=== PATIENT | female | born 1990 | race Caucasian/White ===

== ENCOUNTER → 2023-12-16 09:53 | Outpatient (REF) | payer BC, SELFPAY | LOC: PNTC 09:53 | PROVIDERS: ATTENDING PHYSICIAN Obstetrics & Gynecology | DX: Z87.59 Personal history of other complications of pregnancy, childbirth and the puerperium (principal); O99.841 Bariatric surgery status complicating pregnancy, first trimester | CPT/HCPCS: 76816 ==

== ENCOUNTER → 2024-01-15 09:31 | Outpatient (REF) | payer BC, SELFPAY | LOC: PNTC 09:31 | PROVIDERS: ATTENDING PHYSICIAN Obstetrics & Gynecology | DX: Z87.59 Personal history of other complications of pregnancy, childbirth and the puerperium (principal); O99.840 Bariatric surgery status complicating pregnancy, unspecified trimester | CPT/HCPCS: 76816 ==

== ENCOUNTER → 2024-02-12 09:34 | Outpatient (REF) | payer BC, SELFPAY | LOC: PNTC 09:34 | PROVIDERS: ATTENDING PHYSICIAN Obstetrics & Gynecology | DX: O99.841 Bariatric surgery status complicating pregnancy, first trimester (principal); Z87.59 Personal history of other complications of pregnancy, childbirth and the puerperium | CPT/HCPCS: 76816 ==

== ENCOUNTER 2024-02-28 19:50 | Observation (INO) | payer BC, SELFPAY ==
[2024-02-28 20:02] VITALS: BMI 30.9
[2024-02-28 20:24] VITALS: BP 138/88
[2024-02-28 20:27] LABS: % Basophils 0.6 % (0-2); % Eosinophils 0.8 % (0-6); % Immature Granulocytes 0.4 % (0-0.5); % Lymphocytes 26.9 % (20.5-51.1); % Monocytes 5.4 % (1.7-9.3); % Neutrophils 65.9 % (42.2-75.2); Absolute Basophils 0.1 10^3/uL (0-0.2); Absolute Eosinophils 0.1 10^3/uL (0-0.7); Absolute Lymphocytes 2.5 10^3/uL (1.2-3.4); Absolute Monocytes 0.5 10^3/uL (0.1-0.6); Absolute Neutrophils 6.1 10^3/uL (1.4-6.5); Hematocrit 30.3 % (37.0-47.0); Hemoglobin 10.5 g/dL (12.0-16.0); Mean Corp Hgb Conc. 34.7 g/dL (33.0-37.0); Mean Corpuscular Hgb 27.1 pg (27.0-31.0); Mean Corpuscular Volume 78.1 fL (81.0-99.0); Mean Platelet Volume 9.3 fL (7.4-10.4); Nucleated Red Blood Cells % 0 %; Platelet Count 326 10^3/uL (130-400); Red Blood Cell Count 3.88 10^6/uL (4.20-5.40); Red Cell Dist. Width 16.4 % (11.5-14.5); White Blood Cell Count 9.2 10^3/uL (4.8-10.8)
[2024-02-28 20:42] LABS: ALT (SGPT) 13 U/L (0-35); AST (SGOT) 17 U/L (14-36); Albumin 3.3 g/dl (3.5-5.0); Alkaline Phosphatase 81 U/L (38-126); Blood Urea Nitrogen 7 mg/dl (7-17); Calcium 8.7 mg/dl (8.4-10.2); Carbon Dioxide 18 mmol/L (22-30); Chloride 109 mmol/L (98-107); Estimated Creatinine Clearance > 125 ml/min; Glucose 126 mg/dl (70-99); Potassium 3.4 mmol/L (3.5-5.1); Sodium 136 mmol/L (135-145); Total Bilirubin 0.2 mg/dl (0.2-1.3); Total Protein 6.2 g/dl (6.3-8.2); eGFR > 60.00
[2024-02-28 21:22] LABS: Protein/creatinine Ratio 0.3; Urine Protein 13 mg/dl
== END 2024-02-28 21:25 | disposition home or self-care (01) ==
LOC: LDRP 19:50
PROVIDERS: ADMITTING PHYSICIAN Obstetrics & Gynecology
DX: O13.3 Gestational [pregnancy-induced] hypertension without significant proteinuria, third trimester (principal); O99.413 Diseases of the circulatory system complicating pregnancy, third trimester; Z3A.36 36 weeks gestation of pregnancy; I34.0 Nonrheumatic mitral (valve) insufficiency; J45.909 Unspecified asthma, uncomplicated; O99.52 Diseases of the respiratory system complicating childbirth; G43.909 Migraine, unspecified, not intractable, without status migrainosus; O99.843 Bariatric surgery status complicating pregnancy, third trimester; O09.523 Supervision of elderly multigravida, third trimester
CPT/HCPCS: 59025; 80053; 82570; 84156; 85025; G0378

== ENCOUNTER 2024-03-05 11:15 | Inpatient (IN) | payer BC, SELFPAY ==
[2024-03-05 11:44] LABS: % Basophils 0.6 % (0-2); % Eosinophils 0.3 % (0-6); % Immature Granulocytes 0.3 % (0-0.5); % Lymphocytes 22.7 % (20.5-51.1); % Monocytes 4.4 % (1.7-9.3); % Neutrophils 71.7 % (42.2-75.2); Absolute Basophils 0.1 10^3/uL (0-0.2); Absolute Monocytes 0.4 10^3/uL (0.1-0.6); Absolute Neutrophils 6.4 10^3/uL (1.4-6.5); Hematocrit 32.6 % (37.0-47.0); Hemoglobin 10.7 g/dL (12.0-16.0); Mean Corp Hgb Conc. 32.8 g/dL (33.0-37.0); Mean Corpuscular Hgb 26.5 pg (27.0-31.0); Mean Corpuscular Volume 80.7 fL (81.0-99.0); Mean Platelet Volume 9.3 fL (7.4-10.4); Nucleated Red Blood Cells % 0 %; Platelet Count 317 10^3/uL (130-400); Red Blood Cell Count 4.04 10^6/uL (4.20-5.40); Red Cell Dist. Width 16.1 % (11.5-14.5)
[2024-03-05 11:46] VITALS: BP 134/81; BMI 31.1
[2024-03-05 11:50] LABS: Urine Albumin Negative (Neg - Trace); Urine Bilirubin Negative (Negative); Urine Character Clear (Clear); Urine Color Straw; Urine Glucose Negative (Negative); Urine Ketone Negative (Negative); Urine Leukocyte Negative (Negative); Urine Nitrite Negative (Negative); Urine Occult Blood Negative (Negative); Urine Urobilinogen Negative (Neg - 1+)
[2024-03-05 12:01] LABS: ALT (SGPT) 12 U/L (0-35); AST (SGOT) 19 U/L (14-36); Albumin 3.6 g/dl (3.5-5.0); Alkaline Phosphatase 84 U/L (38-126); Blood Urea Nitrogen 9 mg/dl (7-17); Calcium 8.9 mg/dl (8.4-10.2); Carbon Dioxide 21 mmol/L (22-30); Chloride 108 mmol/L (98-107); Estimated Creatinine Clearance > 125 ml/min; Glucose 82 mg/dl (70-99); Potassium 4.1 mmol/L (3.5-5.1); Sodium 135 mmol/L (135-145); Total Bilirubin 0.3 mg/dl (0.2-1.3); Total Protein 6.5 g/dl (6.3-8.2); Uric Acid 2.3 mg/dl (2.5-6.2); eGFR > 60.00
[2024-03-05 12:23] LABS: Protein/creatinine Ratio 0.5; Urine Protein 12 mg/dl
[2024-03-05] MEDS: LR 1000 IV (14:45)
[2024-03-05] MEDS: ANCEF 10 IV (16:12)
[2024-03-05] MEDS: TYLENOL 1000 MG PO (16:12)
[2024-03-05] MEDS: BICITRA 30 ML PO (16:12)
[2024-03-05] MEDS: BENADRYL 25 MG IV (20:55)
[2024-03-05] MEDS: TORADOL 15 MG IV (22:41)
[2024-03-06] MEDS: TORADOL 15 MG IV ×3 (04:41→17:12)
[2024-03-06] MEDS: MYLICON 80 MG PO ×2 (04:55→09:33)
[2024-03-06 05:35] LABS: Hemoglobin 9.9 g/dL (12.0-16.0); Mean Corpuscular Hgb 26.8 pg (27.0-31.0); Mean Corpuscular Volume 81.3 fL (81.0-99.0); Mean Platelet Volume 9.7 fL (7.4-10.4); Platelet Count 291 10^3/uL (130-400); Red Blood Cell Count 3.69 10^6/uL (4.20-5.40); Red Cell Dist. Width 15.9 % (11.5-14.5); White Blood Cell Count 16.2 10^3/uL (4.8-10.8)
--- NOTE | 2024-03-06 07:57 | W.PN.ANS.POP ---
Anesthesia Post Operative
- Anesthesia Post Op Note
Vital Signs Stable-See Nursing Note: Yes
Airway Patent: Yes
Adequate Pain Control: Yes
Change in Mental Status: No
Current Postoperative Nausea & Vomiting: No
General Anesthetic Recall: No
Unplanned Admission: No
Post Op Hydration Adequate: Yes
[2024-03-06] MEDS: PRENATAL PLUS 1 TABLET PO (09:33)
[2024-03-06] MEDS: FEOSOL 325 MG PO ×2 (09:33→19:52)
[2024-03-06] MEDS: SENOKOT-S 1 TABLET PO (10:45)
[2024-03-06 15:08] LABS: Syphilis/T. pallidum Ab Reflex Negative (Negative)
[2024-03-06] MEDS: PERCOCET 5/325 1 TABLET PO (15:46)
[2024-03-06] MEDS: TYLENOL 650 MG PO (23:38)
[2024-03-06] MEDS: MOTRIN 600 MG PO (23:39)
[2024-03-07] MEDS: TYLENOL 650 MG PO ×2 (08:25→19:20)
[2024-03-07] MEDS: FEOSOL 325 MG PO ×2 (08:25→19:21)
[2024-03-07] MEDS: SENOKOT-S 1 TABLET PO (08:25)
[2024-03-07] MEDS: PRENATAL PLUS 1 TABLET PO (08:25)
[2024-03-07] MEDS: MOTRIN 600 MG PO ×2 (08:25→19:21)
[2024-03-08] MEDS: FEOSOL 325 MG PO (07:48)
[2024-03-08] MEDS: PRENATAL PLUS 1 TABLET PO (07:48)
--- NOTE | 2024-03-08 10:39 | W.DS.TRANS ---
Addendum entered and electronically signed by Kath Darby DO 03/08/24 10:46:
Discharge diagnosis-
AMA
[id number]
Preeclampsia without severe features
Anemia from blood loss from csection
Original Note:
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
-
Discharge Instructions:
Discharge Diagnosis/Procedures delivered
Diet Regular
Activity No strenuous activity
Driving Restrictions As prior to admission
Bathing Restrictions OK to Shower
Instructions:
Stand-Alone Forms: LDRP Delivery
Changes to Home Medications: No
Discharge Medications:
DC Medications w/original date entered in [email or web address]
prenat.vits,[place],[id number]-glgn-[id number] 1 tab PO DAILY Supplement 09/19/22
acetaminophen 325 mg tablet 650 mg (2 x 325 mg) PO Q4HPRN PRN mild pain #0 tabs 03/08/24
ferrous sulfate 325 mg (65 mg iron) tablet (FeroSul) 325 mg PO DAILY #0 tabs 03/08/24
ibuprofen 600 mg tablet 600 mg PO Q6HPRN PRN cramps #0 tabs 03/08/24
oxycodone 5 mg tablet 5 mg PO Q6H PRN severe pain #8 tabs 03/08/24
Home Medication Changes
Pending Results: No
Total time spent discharging patient (in min): 25
== END 2024-03-08 11:30 | disposition home or self-care (01) | DRG 787 ==
LOC: LDRP 11:15
PROVIDERS: ADMITTING PHYSICIAN Obstetrics & Gynecology
PROC: 10D00Z1 Extraction of Products of Conception, Low, Open Approach (ICD-10-PCS; 2024-03-05)
DX: O14.04 Mild to moderate pre-eclampsia, complicating childbirth (principal); J98.11 Atelectasis; Z3A.37 37 weeks gestation of pregnancy; Z37.0 Single live birth; O34.211 Maternal care for low transverse scar from previous cesarean delivery; O69.81X0 Labor and delivery complicated by cord around neck, without compression, not applicable or unspecified; O99.824 Streptococcus B carrier state complicating childbirth; O99.844 Bariatric surgery status complicating childbirth; J45.909 Unspecified asthma, uncomplicated; G43.909 Migraine, unspecified, not intractable, without status migrainosus; O99.284 Endocrine, nutritional and metabolic diseases complicating childbirth; O99.02 Anemia complicating childbirth; R07.89 Other chest pain; E28.2 Polycystic ovarian syndrome; Z82.49 Family history of ischemic heart disease and other diseases of the circulatory system; Z80.8 Family history of malignant neoplasm of other organs or systems; Z83.3 Family history of diabetes mellitus
CPT/HCPCS: 88307; 71275; 80053; 81003; 82570; 84156; 84550; 85025; 85027; 86780; 86850; 86900; 86901; Q9967